=== PATIENT | male | born 1995 | race Hispanic/Latino ===

== ENCOUNTER → 2024-04-13 17:11 | Outpatient (CLI) | payer OTHER, SELFPAY ==
--- NOTE | 2024-04-13 17:13 | DI.MRI.S_ITS ---
PROCEDURE: MR KNEE LT WO CON INDICATIONS: LT KNEE PAIN TECHNIQUE: Noncontrast sagittal PD fast spin echo and T2 fast spin echo with fat saturation, sagittal 3-D FLASH with fat saturation; coronal T1 spin echo and PD fast spin echo with fat saturation, and axial PD fast spin echo with fat saturation through the knee. COMPARISON: None. FINDINGS: Image quality: Excellent. Menisci: The medial and lateral menisci demonstrate normal morphology and internal signal. The meniscal root ligaments appear intact. Cruciate ligaments: The anterior and posterior cruciate ligaments appear intact. Medial structures: The medial collateral ligament appears intact. Visualized portions of the pes anserinus tendons appear normal. No abnormal bursal fluid. Lateral structures: The lateral collateral ligament, long and short heads of the biceps femoris tendon appear intact. The popliteus tendon appears normal. Iliotibial band appears normal. Anterior structures: The quadriceps tendon is intact. There is mild thickening of the patellar tendon at the patellar insertion site which demonstrates a small focus of high T2 signal intensity. Patellar alignment is normal. No femoral trochlear dysplasia or ventral trochlear prominence. Mild edema in the infrapatellar fat pad. Bones and cartilage: No bone marrow contusions or fractures. Mild reactive marrow edema within the inferior patella adjacent to the patellar ligament insertion site. The cartilage of the medial and lateral femorotibial compartments, as well as the patellofemoral compartment, appears normal in thickness. Joint space: There is physiologic knee joint fluid. Trace Del Real's cyst. Normal appearing synovial plicae are incidentally noted. IMPRESSION: 1. Patellar tendinitis with superimposed low-grade patellar tendon tear. 2. No internal derangement. Dictated by: Ramu Gonzalez M.D. on 04/14/2024 at 9:37 Approved by: Ramu Gonzalez M.D. on 04/14/2024 at 9:41
== END ==
PROVIDERS: Referring Provider Nurse Practitioner Family; Visit Provider Nurse Practitioner Family
DX: S76.112A Strain of left quadriceps muscle, fascia and tendon, initial encounter (principal); M76.52 Patellar tendinitis, left knee; M25.562 Pain in left knee
CPT/HCPCS: 73721